=== PATIENT | female | born 1985 | race Caucasian/White ===

== ENCOUNTER → 2023-03-26 | Outpatient (REF) | payer BC, OTHER ==
[2023-03-26 19:05] LABS: C REACTIVE PROTEIN QUANTITATIV 0.8 MG/DL (<1.0)
[2023-03-26 19:07] LABS: MAGNESIUM LEVEL 2.1 MG/DL (1.8-2.4); PERCENT SATURATION 11.3 % (13.2-45.0); PHOSPHORUS LEVEL 3.4 MG/DL (2.5-4.9)
[2023-03-26 19:09] LABS: FOLATE 18.39 NG/ML (>5.4); TOTAL 25(OH) VITAMIN D 36.8 NG/ML (20.0-100.0)
== END ==
LOC: M SFHCRHEU 14:32
PROVIDERS: ATTEND Internal Medicine
DX: R70.0 Elevated erythrocyte sedimentation rate (principal); R79.82 Elevated C-reactive protein (CRP); R53.82 Chronic fatigue, unspecified

== ENCOUNTER → 2023-12-13 | Outpatient (REF) | payer BC | LOC: M SFHCRHEU 21:16 | PROVIDERS: ATTEND Internal Medicine | DX: R53.82 Chronic fatigue, unspecified (principal); Z53.9 Procedure and treatment not carried out, unspecified reason ==